=== PATIENT | male | born 1995 | race Caucasian/White ===

== ENCOUNTER 2023-12-10 00:18 | Emergency (ER) | payer BC, SELFPAY ==
[2023-12-10 00:36] VITALS: BP 158/90
[2023-12-10 01:09] VITALS: BMI 17.7
[2023-12-10 01:19] VITALS: BP 129/83
--- NOTE | 2023-12-10 01:19 | ED.GENMED ---
History of Present Illness
General
Chief Complaint: Abdominal Symptoms
Source: patient
Exam Limitations: none
Time Seen by Provider: 12/10/23 01:10
History of Present Illness
History of Present Illness:
This is a 28 year old male that comes in with c/o vomiting. States that he had a cocktail at work on and he has been vomiting every since. States that he was also in [facility] on Friday. States that they did not give him anything
for the nausea and vomiting for home. States that at first he was vomiting bile and know when he drinks water he just vomits. States that he has a headache with occasional dizziness. Denies any fever, chills, chest pain, SOB, abd pain, diarrhea,
urinary burning.
Past History
Past History
ED Past Medical History: Other (Cyclical vomiting)
ED Past Surgical History: None
Social History
Tobacco: Non-smoker
Alcohol: Occasional
Drug: Marijuana
Personal: Single
Living: with family
Employment: Employed
Family History
Family History: Other
Review of Systems
Review of Systems
All Other Systems: ROS reviewed and negative except as documented in HPI and ROS
Constitutional: Reports no symptoms; Denies fever or chills
EENT: Reports no symptoms
Respiratory: Reports no symptoms; Denies cough or trouble breathing
Cardiac: Denies chest pain
ABD/GI: Reports nausea and vomiting; Denies abdominal pain or diarrhea
: Reports no symptoms; Denies dysuria, frequency or urgency
Musculoskeletal: Reports no symptoms
Skin: Reports no symptoms
Neurological: Reports dizzy (occasional) and headache
Psychiatric: Reports no symptoms
Phy Exam
General Physical Exam
General Presentation: well appearing and no apparent distress
General age: appears stated age
General Skin: warm and dry
General Habitus: normal
General Mental: alert
General Hydration: appears well hydrated
ENT Exam
ENT Exam: TM's normal, pharynx normal and neck supple
Eye Exam
Eye Exam: EOMI
Cardiovascular Exam
Cardiovascular Exam: regular rate/rhythm, no edema, no murmur and normal peripheral pulses
Pulmonary Exam
Pulmonary Exam: lungs clear, no respiratory distress, no rales, chest non tender, no crackles, no rhonchi, no wheezing and no cough
Gastrointestinal Exam
Gastrointestinal Exam: normal bowel sounds, non tender, soft, no organomegaly, no pulsatile mass and non distended
Musculoskeletal Exam
Musculoskeletal Exam: full ROM and no edema
Skin Exam
Skin Exam: normal color, warm/dry, no rash and no petechia
Psychiatric Exam
Psychiatric Exam: normal mood/affect
Course
Orders/Labs/Results
Orders:
Orders
12/10/23 01:06
IV Insert/Care/Rem.- Treatment PRN
12/10/23 01:18
0.9% Sodium Chloride 1000 ml [Nss] 1,000 ml IV BOLUS
Ondansetron Injectable [Zofran] 4 mg IV NOW STA
12/10/23 01:22
Pantoprazole [Protonix IV] 40 mg IV NOW STA
12/10/23 01:27
Complete Blood Count/With Diff Urgent
Comprehensive Metabolic Panel Urgent
Lipase Urgent
Abnormal Lab Results
12/10/23
01:27
Absolute Neuts (auto) 8.0 H 10^3/uL
(1.4-6.5)
Absolute Lymphs (auto) 0.9 L 10^3/uL
(1.2-3.4)
Neutrophils % 85.8 H %
(42.2-75.2)
Lymphocytes % 9.8 L %
(20.5-51.1)
Carbon Dioxide 17 L mmol/L
(22-30)
Glucose 101 H mg/dl
(70-99)
Total Bilirubin 1.5 H mg/dl
(0.2-1.3)
Albumin 5.2 H g/dl
(3.5-5.0)
12/10/23 01:27
12/10/23 01:27
Carbon dioxide low. Glucose nonfasting. Total jocelyne slightly elevated. Albumin slightly elevated. Lipase normal at 192
Vital Signs
Initial and Last Documented VS:
Initial Vital Signs
Temp Pulse Resp BP Pulse Ox
97 F 65 24 158/90 100
12/10/23 00:36 12/10/23 00:36 12/10/23 00:36 12/10/23 00:36 12/10/23 00:36
Last Documented Vital Signs
Temp Pulse Resp BP Pulse Ox
98.8 F 65 24 158/90 100
12/10/23 01:17 12/10/23 00:36 12/10/23 00:36 12/10/23 00:36 12/10/23 00:36
MDM/Problems Addressed
Differential Diagnosis Includes:
Cyclical vomiting
MDM/Problems Addressed:
This is a 28 year old male that had a cocktail on and since that time he has been vomiting. Patient was also seen at [facility] on Friday.
Will check labs and give IV fluids and Zofran.
Back into see patient. States that he is feeling better. Will give patient oral fluid now to see if he can keep them down.
Patient tolerating oral fluids well. Will discharge home.
Chronic conditions affecting care:
Cyclical vomiting
Acute Exacerbation and/or Progression of Chronic Illness:
Cyclical vomiting
*Pulse Oximetry
Patient hypoxic: no
*EKG
Interpreted by ED Provider?: NA
Rate: EKG- N/A
*[employer] Interpretation
Rate: normal
Heart Rate: 73
Rhythm: sinus arrhythmia
*Critical Care Note
Total Time (30-74mins, 75-104mins- exclusive of procedures): Not Applicable
ED Attending Note
-
Portions of this chart may have been created with voice recognition software.� Occasional wrong word or��sound alike� substitutions may have occurred due to the inherent limitations of voice recognition software.
Discharge Plan
Departure
Patient Disposition: Home (Routine Discharge)
Date of Disposition: 12/10/23
Time of Disposition: 02:32
Patient with high blood pressure during this ER visit?: Yes
Condition: Good
Covid-19: Not Applicable
Discharge Problem:
Nausea & vomiting
Instructions: Nausea and Vomiting, Adult (DC), BLOOD PRESSURE
Prescriptions:
New
ondansetron 4 mg tablet,disintegrating
4 mg PO Q8H PRN (Reason: nausea and vomiting) Qty: 7 0RF
No Action
ondansetron 4 MG tablet,disintegrating
4 mg PO TIDPRN PRN (Reason: nausea/vomiting) Qty: 6 0RF
metoclopramide HCl 5 MG tablet
5 mg PO BID PRN (Reason: nausea) Qty: 20 0RF
Referrals:
Khadra Washburn MD [Family Provider] - As needed
Activity Restrictions/Additional Instructions:
As discussed, your blood work is normal. Please sip on liquids and advance your diet as tolerated. You have had a prescription for Zofran sent to your Pharmacy for any further nausea/vomiting. Follow up with the family doctor as needed. IF YOU
HAVE ANY OTHER CONCERNS PLEASE RETURN TO THE EMERGENCY ROOM.
Interventions
Interventions:
*Risk Screen - Suicide Last Done: 12/10/23 00:36
*Neglect/Abuse Screening Last Done: 12/10/23 00:36
ED- Fall Risk Assessment Last Done: 12/10/23 01:10
*ED COVID-19 Vaccine History Last Done: 12/10/23 01:10
FA-Rrjeoh-Mrviyumnqe Assessment Last Done: 12/10/23 01:02
Discharge Date and Time
Print Language: FIJIAN
[2023-12-10] MEDS: NSS 1000 IV (01:30)
[2023-12-10] MEDS: ZOFRAN 4 MG IV (01:32)
[2023-12-10] MEDS: PROTONIX IV 40 MG IV (01:33)
[2023-12-10 01:41] LABS: % Basophils 0.3 % (0-2); % Immature Granulocytes 0.3 % (0-0.5); % Lymphocytes 9.8 % (20.5-51.1); % Monocytes 3.8 % (1.7-9.3); % Neutrophils 85.8 % (42.2-75.2); Absolute Lymphocytes 0.9 10^3/uL (1.2-3.4); Absolute Monocytes 0.4 10^3/uL (0.1-0.6); Hemoglobin 14.7 g/dL (13.0-18.0); Mean Corp Hgb Conc. 36.8 g/dL (33.0-37.0); Mean Corpuscular Hgb 29.6 pg (27.0-31.0); Mean Corpuscular Volume 80.5 fL (80.0-94.0); Mean Platelet Volume 9.4 fL (7.4-10.4); Nucleated Red Blood Cells % 0 % (-); Platelet Count 338 10^3/uL (130-400); Red Blood Cell Count 4.97 10^6/uL (4.70-6.10); Red Cell Dist. Width 12.9 % (11.5-14.5); White Blood Cell Count 9.3 10^3/uL (4.8-10.8)
[2023-12-10 01:54] LABS: ALT (SGPT) 18 U/L (0-50); AST (SGOT) 29 U/L (17-59); Albumin 5.2 g/dl (3.5-5.0); Alkaline Phosphatase 57 U/L (38-126); Blood Urea Nitrogen 14 mg/dl (9-20); Calcium 10.2 mg/dl (8.4-10.2); Carbon Dioxide 17 mmol/L (22-30); Chloride 103 mmol/L (98-107); Estimated Creatinine Clearance 117 ml/min; Glucose 101 mg/dl (70-99); Lipase 192 U/L (23-300); Potassium 3.9 mmol/L (3.5-5.1); Sodium 138 mmol/L (135-145); Total Bilirubin 1.5 mg/dl (0.2-1.3); Total Protein 7.6 g/dl (6.3-8.2); eGFR > 60.00
[2023-12-10 02:00] VITALS: BP 133/77
[2023-12-10 02:42] VITALS: BP 114/65
== END 2023-12-10 02:50 | disposition home or self-care (01) ==
LOC: EMR 00:18
PROVIDERS: EMERGENCY PHYSICIAN Student in an Organized Health Care Education/Training Program; FAMILY PHYSICIAN Internal Medicine
DX: R11.2 Nausea with vomiting, unspecified (principal); R03.0 Elevated blood-pressure reading, without diagnosis of hypertension
CPT/HCPCS: 99284; 96374; 96375; 96361; 80053; 83690; 85025